=== PATIENT | female | born 1965 | race Caucasian/White ===

== ENCOUNTER 2018-03-06 10:36 | Day surgery (SDC) | payer OTHER ==
[2018-03-06] MEDS ORDERED: FENTAnyl 50 MCG/ML VIAL (12:41)
[2018-03-06] MEDS ORDERED: MIDAZOLAM 1 MG/ML 2 ML INJ ×2 (12:41)
== END 2018-03-06 12:51 | disposition home or self-care (01) ==
LOC: GIL 10:36
DX: K29.50 Unspecified chronic gastritis without bleeding (principal); K44.9 Diaphragmatic hernia without obstruction or gangrene; K21.9 Gastro-esophageal reflux disease without esophagitis; K64.8 Other hemorrhoids; F17.200 Nicotine dependence, unspecified, uncomplicated
CPT/HCPCS: 43239; 88305; 88312